=== PATIENT | male | born 1970 | race Hispanic/Latino ===

== ENCOUNTER 2018-10-31 20:07 | Emergency (ER) | payer OTHER ==
[2018-10-31 21:54] LABS: BASOPHILS % (AUTO) 1.7 % (0.0-5.0); HEMATOCRIT 41.5 % (42-54); LYMPHOCYTES % (AUTO) 47.6 % (21.0-51.0); MEAN CORPUSCULAR HEMOGLOBIN 30.3 pg (27.0-33.0); MEAN CORPUSCULAR HGB CONC 33.8 g/dL (32.0-36.0); MEAN CORPUSCULAR VOLUME 89.6 fL (79-99); MONOCYTES % (AUTO) 10.2 % (3.0-13.0); NEUTROPHILS % (AUTO) 31.5 % (40.0-77.0); NUCLEATED RED BLOOD CELLS 0.1 % (0.0-0.19); PLATELET COUNT (AUTO) 167 K/uL (130-400); RED BLOOD CELL COUNT(AUTO) 4.64 MIL/uL (4.50-6.20)
[2018-10-31 22:03] LABS: CREATININE 0.9 mg/dL (0.5-1.5); POTASSIUM 3.6 mmol/L (3.5-5.1)
[2018-10-31 22:17] LABS: B-TYPE NATRIURETIC PEPTIDE < 5 pg/mL (0-100)
[2018-10-31 23:05] LABS: AMPHET/METH SCREEN,URINE NEGATIVE (NEGATIVE); BARBITURATE SCREEN, URINE NEGATIVE (NEGATIVE); BENZODIAZEPINES SCREEN,URINE NEGATIVE (NEGATIVE); CANNABINOID SCREEN,URINE NEGATIVE (NEGATIVE); COCAINE SCREEN,URINE NEGATIVE (NEGATIVE); OPIATE SCREEN,URINE NEGATIVE (NEGATIVE); PHENCYCLIDINE SCREEN,URINE NEGATIVE (NEGATIVE)
== END 2018-10-31 23:07 | disposition home or self-care (01) ==
LOC: EDH 20:07
DX: R06.00 Dyspnea, unspecified (principal)
CPT/HCPCS: 36415; 71045; 80048; 80305; 83880; 84484; 85025; 93005